=== PATIENT | female | born 1990 | race Hispanic/Latino ===

== ENCOUNTER 2017-10-03 13:48 | Emergency (ER) | payer OTHER ==
[2017-10-03] MEDS ORDERED: HYDROCODONE/APAP 7.5/325 MG TAB ONE (15:19)
[2017-10-03] MEDS ORDERED: ONDANSETRON 4 MG (ODT) TAB ONE (15:48)
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
--- NOTE | 2017-10-03 15:58 | RAD REPORT ---
EXAM DESCRIPTION: RAD - Wrist Left 3 View - 10/03/2017 3:43 pm CLINICAL HISTORY: Left wrist pain status post injury FINDINGS: A mildly displaced fracture involves distal radius which extends intra-articularly. Ulnar styloid process avulsion fracture is seen. The distal ulna lies dorsally with respect to the radius on the lateral view. This could indicate a s ubluxation or be secondary to positioning.
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
== END 2017-10-03 16:41 | disposition home or self-care (01) ==
LOC: ER 13:48
PROC: 2W3DX1Z Immobilization of Left Lower Arm using Splint (ICD-10-PCS; principal; 2017-10-03)
DX: S52.502A Unspecified fracture of the lower end of left radius, initial encounter for closed fracture (principal); S52.612A Displaced fracture of left ulna styloid process, initial encounter for closed fracture; V49.40XA Driver injured in collision with unspecified motor vehicles in traffic accident, initial encounter; E03.9 Hypothyroidism, unspecified
CPT/HCPCS: 70450; 99285